=== PATIENT | female | born 1990 | race Caucasian/White ===

== ENCOUNTER 2017-04-14 01:13 | Emergency (ER) | payer SELFPAY ==
[2017-04-14 01:20] VITALS: BP 136/72; PULSE 68; RESP 14; TEMP 36.4; O2SAT 99; BMI 20.1
--- NOTE | 2017-04-14 01:47 | [facility].EDMCLR ---
ED Disposition Clinical Impression: Medical clearance for incarceration Disposition: Home, Self-Care Condition on Discharge: Good - Critical Care Critical Care Time: No Attestation: On , the high probability of a clinically significant, sudden or life threatening deterioration of the following system(s) required my full and direct attention, intervention and personal management. The time I documented below is in addition to time spent performing reported procedures but includes the following listed in this critical care notation. Medical Decision Making Vital Signs: 04/14/17 01:20 Temperature 97.5 F L Temperature Source Oral Pulse Rate [Right Radial] 68 Respiratory Rate 14 Blood Pressure [Right Arm] 136/72 Blood Pressure Mean [Right Arm] 93 Blood Pressure Source [Right Arm] Automatic Cuff Blood Pressure Position [Right Arm] Sitting 02 Sat by Pulse Oximetry 99 Oxygen Delivery Method Room Air - Salo Inquiry Pt receiving controlled substance: No Medical Clearance HPI - General Chief complaint: Medical Clearance Stated complaint: Medical Clearance Time Seen by Provider: 04/14/17 01:47 Mode of Arrival: Ambulatory Source of Information: Patient, Medical Record Limitations: No Limitations Description of Symptoms (Recalled from ER Triage Doc. by RN): medical clearance, alcohol - History of Present Illness HPI Narrative: pt w/o compliant MD complaint: medical clearance requested Reason for Medical Clearance: intoxication Alleged Intoxication: Yes Traumatic Symptoms: denies traumatic injury Associated Symptoms: denies other symptoms Home medications: Home Medications Medication Instructions Recorded Confirmed No Known Home Medications [No 04/14/17 04/14/17 Known Home Medications] Allergies/Adverse reactions: Allergies Allergy/AdvReac Type Severity Reaction Status Date / Time No Known Allergies Allergy Verified 04/14/17 01:26 [facility] History I have reviewed the patient's past medical history: Yes Medical History: Denies:: Cancer, Diabetes Mellitus Type 1, Diabetes Mellitus Type 2, MRSA Amputation: No Fractures: No - Social History Smoking Status: Never smoker Alcohol Intake: current - Psychiatric History Expresses thoughts of harming self/others: None Suicide Plan Description: No Plan ROS Obtained: Yes All systems reviewed & no additional complaints - Constitutional Constitutional: Denies fever(s) - Eyes Eyes: Denies change in vision - ENT Ears, Nose, Mouth, and Throat: Denies sore throat - Cardiovascular Cardiovascular: Denies chest pain - Respiratory Respiratory: No cough - Gastrointestinal Gastrointestingal: Denies: abdominal pain - Musculoskeletal Musculoskeletal: Denies joint pain, Denies back pain, Denies neck pain - Integumentary/Breasts Skin/Breast: Denies rash - Neurologic Neurologic: Denies seizure-like activity Physical Exam - General General appearance: alert, in no apparent distress - Head Head exam: normocephalic - Eye Eye exam: Present: PERRL, EOMI. Absent: scleral icterus - ENT ENT exam: Present: mucous membranes moist - Neck Neck exam: Present: trachea midline - Respiratory Respiratory exam: Present: normal lung sounds bilaterally. Absent: respiratory distress - Cardiovascular Cardiovascular exam: Present: regular rate - Extremities Exam Extremities exam: Present: full ROM - Neurological Exam Neurological exam: Present: alert, oriented X3, CN II-XII intact - Psychiatric Psychiatric exam: Present: normal affect - Skin Skin exam: Absent: rash - Lymphatic Lymphatic Findings: no adenopathy
--- NOTE | 2017-04-14 01:50 | ED_ITS ---
ED Disposition Clinical Impression: Medical clearance for incarceration Disposition: Home, Self-Care Condition on Discharge: Good - Critical Care Critical Care Time: No Attestation: On , the high probability of a clinically significant, sudden or life threatening deterioration of the following system(s) required my full and direct attention, intervention and personal management. The time I documented below is in addition to time spent performing reported procedures but includes the following listed in this critical care notation. Medical Decision Making Vital Signs: 04/14/17 01:20 Temperature 97.5 F L Temperature Source Oral Pulse Rate [Right Radial] 68 Respiratory Rate 14 Blood Pressure [Right Arm] 136/72 Blood Pressure Mean [Right Arm] 93 Blood Pressure Source [Right Arm] Automatic Cuff Blood Pressure Position [Right Arm] Sitting 02 Sat by Pulse Oximetry 99 Oxygen Delivery Method Room Air - Salo Inquiry Pt receiving controlled substance: No Medical Clearance HPI - General Chief complaint: Medical Clearance Stated complaint: Medical Clearance Time Seen by Provider: 04/14/17 01:47 Mode of Arrival: Ambulatory Source of Information: Patient, Medical Record Limitations: No Limitations Description of Symptoms (Recalled from ER Triage Doc. by RN): medical clearance , alcohol - History of Present Illness HPI Narrative: pt w/o compliant MD complaint: medical clearance requested Reason for Medical Clearance: intoxication Alleged Intoxication: Yes Traumatic Symptoms: denies traumatic injury Associated Symptoms: denies other symptoms Home medications: Home Medications Medication Instructions Recorded Confirmed No Known Home Medications [No 04/14/17 04/14/17 Known Home Medications] Allergies/Adverse reactions: Allergies Allergy/AdvReac Type Severity Reaction Status Date / Time No Known Allergies Allergy Verified 04/14/17 01:26 [facility] History I have reviewed the patient's past medical history: Yes Medical History: Denies:: Cancer, Diabetes Mellitus Type 1, Diabetes Mellitus Type 2, MRSA Amputation: No Fractures: No - Social History Smoking Status: Never smoker Alcohol Intake: current - Psychiatric History Expresses thoughts of harming self/others: None Suicide Plan Description: No Plan ROS Obtained: Yes All systems reviewed & no additional complaints - Constitutional Constitutional: Denies fever(s) - Eyes Eyes: Denies change in vision - ENT Ears, Nose, Mouth, and Throat: Denies sore throat - Cardiovascular Cardiovascular: Denies chest pain - Respiratory Respiratory: No cough - Gastrointestinal Gastrointestingal: Denies: abdominal pain - Musculoskeletal Musculoskeletal: Denies joint pain, Denies back pain, Denies neck pain - Integumentary/Breasts Skin/Breast: Denies rash - Neurologic Neurologic: Denies seizure-like activity Physical Exam - General General appearance: alert, in no apparent distress - Head Head exam: normocephalic - Eye Eye exam: Present: PERRL, EOMI. Absent: scleral icterus - ENT ENT exam: Present: mucous membranes moist - Neck Neck exam: Present: trachea midline - Respiratory Respiratory exam: Present: normal lung sounds
[2017-04-14 01:56] VITALS: BP 130/74; PULSE 83; RESP 12; TEMP 36.6; O2SAT 99
== END 2017-04-14 02:02 ==
PROVIDERS: Emergency Provider Emergency Medicine
DX: Z02.89 Encounter for other administrative examinations (principal); F10.10 Alcohol abuse, uncomplicated
CPT/HCPCS: 99281

== ENCOUNTER → 2017-04-14 02:47 | Outpatient (CLI) | payer SELFPAY ==
[2017-04-15 09:28] LABS: Ethyl Alcohol 214 mg/dL (0-99)
== END ==
DX: Z02.89 Encounter for other administrative examinations (principal); F10.10 Alcohol abuse, uncomplicated
CPT/HCPCS: 36415